=== PATIENT | female | born 1995 | race American Indian/Alaskan Native ===

== ENCOUNTER 2017-10-05 18:12 | Inpatient (IN) | payer MEDICAID ==
[2017-10-05] MEDS ORDERED: BRETHINE IVP PRN (20:59)
[2017-10-05] MEDS ORDERED: STADOL IV PRN (20:59)
[2017-10-05] MEDS ORDERED: ePHEDrine SULFATE IV PRN (20:59)
[2017-10-05] MEDS ORDERED: XYLOCAINE 2% INFILTRATI ONE (20:59)
[2017-10-05] MEDS ORDERED: NARCAN 0.4 MG/1 ML IV PRN (20:59)
[2017-10-05] MEDS ORDERED: SUBLIMAZE IV PRN (20:59)
[2017-10-05] MEDS ORDERED: MINERAL OIL PO PRN (20:59)
[2017-10-05] MEDS ORDERED: ZOFRAN IV PRN (20:59)
[2017-10-05] MEDS ORDERED: BRETHINE SUB-Q PRN (20:59)
[2017-10-05] MEDS ORDERED: PITOCin/NS 30 UNIT/500ML 30 UNITS/500 ML BAG IV SCH (21:00)
[2017-10-05] MEDS ORDERED: PITOCin/NS 20 UNIT/1000ML DRIP 20 UNITS/1,000 ML BAG IV SCH (21:00)
[2017-10-05] MEDS ORDERED: POLYCILLIN/NS 2 GM/100 ML 2 GM/100 ML BAG IV ONE (22:00)
[2017-10-05] MEDS: LACTATED RINGERS 1,000 ML IV SCH (22:30)
[2017-10-05 22:55] LABS: Hematocrit 35.8 % (30.3-42.9); Hemoglobin 12.2 gm/dl (10.1-14.3); Mean Corpuscular HGB Conc 34 % (30-34); Mean Corpuscular Hemoglobin 34 pg (28-32); Mean Corpuscular Volume 100 fl (79-97); Platelet Count 176 K/mm3 (140-440); Red Blood Count 3.59 M/mm3 (3.65-5.03); Red Cell Distribution Width 12.8 % (13.2-15.2); White Blood Count 8.9 K/mm3 (4.5-11.0)
[2017-10-06] MEDS: POLYCILLIN/NS 1 GM/50 ML 1 GM/50 ML BAG IV SCH ×2 (03:10→06:41)
[2017-10-06] MEDS: LACTATED RINGERS 1,000 ML IV SCH ×4 (03:14→13:17)
--- NOTE | 2017-10-06 07:55 | History and Physical Report ---
History of Present Illness Date of examination: 10/06/17 Date of admission: 10/05/17 18:12 History of present illness: 22 yo second trimester ultrasound EDC 09/30/17 @ 40.6 presented to office yesterday for postdates testing. Reactive NST with late decel noted with one contraction. Sent from office for delivery. Low dose Pitocin during the night.. Patient was late entry into care at 21 weeks gestation. Limited anatomical survey with normal anatomy f/u. Anemia with iron QD. She is GBS negative. Past History Past Medical History: no pertinent history Past Surgical History: no surgical history Family/Genetic History: none Social history: no significant social history - Obstetrical History Expected Date of Delivery: 09/30/17 Actual Gestation: 40 Week(s) 6 Day(s) : 1 Medications and Allergies Allergies Allergy/AdvReac Type Severity Reaction Status Date / Time No Known Allergies Allergy Unverified 10/05/17 20:27 Home Medications Medication Instructions Recorded Confirmed Last Taken Type Ferrous Sulfate [Iron] 325 mg PO BID 10/05/17 10/05/17 3 Weeks Ago History ~09/14/17 Vit-Fe Fumar-FA [ 1 tab PO QDAY 10/05/17 10/05/17 10/04/17 History Vitamin] Active Meds: Active Medications Butorphanol Tartrate (Stadol) 2 mg IV Q2H PRN PRN Reason: Pain , Severe (7-10) Ephedrine Sulfate (Ephedrine Sulfate) 10 mg IV Q2M PRN PRN Reason: Hypotension Fentanyl (Sublimaze) 100 mcg IV Q2H PRN PRN Reason: Labor Pain Ampicillin Sodium (Polycillin/Ns 1 Gm/50 Ml) 1 gm in 50 mls @ 100 mls/hr IV Q4H JOHN PRN Reason: Protocol Last Admin: 10/06/17 06:41 Dose: 100 mls/hr Lactated Ringer's (Lactated Ringers) 1,000 mls @ 125 mls/hr IV DIRECT JOHN Last Admin: 10/06/17 03:14 Dose: 125 mls/hr Oxytocin/Sodium Chloride (Pitocin/Ns 20 Unit/1000ml Drip) 20 units in 1,000 mls @ 125 mls/hr IV DIRECT JOHN Oxytocin/Sodium Chloride (Pitocin/Ns 30 Unit/500ml) 30 units in 500 mls @ 1 mls /hr IV TITR JOHN PRN Reason: Protocol Last Titration: 10/06/17 02:05 Dose: 4 mls/hr, 4 mls/hr Mineral Oil (Mineral Oil) 30 ml PO QHS PRN PRN Reason: Constipation Naloxone HCl (Narcan 0.4 Mg/1 Ml) 0.1 mg IV Q2MIN PRN PRN Reason: Res Rate </= 8 or 02 SAT < 92% Ondansetron HCl (Zofran) 4 mg IV Q8H PRN PRN Reason: Nausea And Vomiting Terbutaline Sulfate (Brethine) 0.25 mg SUB-Q ONCE PRN PRN Reason: Hyperstimulation/Hypertonicity Terbutaline Sulfate (Brethine) 0.25 mg IVP ONCE PRN PRN Reason: Hyperstimulation/Hypertonicity Review of Systems All systems: negative - Vital Signs Vital signs: Vital Signs Pulse BP Pulse Ox 98 H 109/68 99 10/05/17 18:43 10/05/17 18:43 10/05/17 18:43 Temp Pulse Resp BP Pulse Ox 97.1 F L 63 18 127/76 100 10/06/17 03:12 10/06/17 07:50 10/06/17 03:12 10/06/17 07:27 10/06/17 07:50 - Physical Exam Breasts: Positive: deferred Abdomen: Positive: normal appearance - Obstetrical FHR: category 1 Uterine Contraction Monitor Mode: External Results Result Diagrams: 10/05/17 22:30 Abnormal lab results 10/05/17 Range/Units 22:30 RBC 3.59 L (3.65-5.03) M/mm3 MCV 100 H (79-97) fl MCH 34 H (28-32) pg RDW 12.8 L (13.2-15.2) % All other labs normal. Assessment and Plan A: IUP at 40.6 weeks gestation Induction of labor
[2017-10-06] MEDS ORDERED: fentaNYL-BUPIV 2 MCG/ML-0.125% 200 MCG/100 ML BAG EPIDURAL ONE (12:27)
--- NOTE | 2017-10-06 13:00 | Anesthesia Consultation ---
Anesthesia Consult and Med Hx Date of service: 10/06/17 - Airway Anesthetic Teeth Evaluation: Good ROM Head & Neck: Adequate Mental/Hyoid Distance: Adequate Mallampati Class: Class II Intubation Access Assessment: Probably Good - Pre-Operative Health Status ASA Pre-Surgery Classification: ASA2 Proposed Anesthetic Plan: Epidural, Spinal - Pulmonary Hx Asthma: No COPD: No Hx Pneumonia: No - Cardiovascular System Hx Hypertension: No - Central Nervous System Hx Seizures: No Hx Psychiatric Problems: No - Endocrine Hx Renal Disease: No Hx End Stage Renal Disease: No Hx Hypothyroidism: No Hx Hyperthyroidism: No - Hematic Hx Anemia: Yes (iron tabs bid) Hx Sickle Cell Disease: No - Other Systems Hx Alcohol Use: No
[2017-10-06] MEDS ORDERED: NARCAN 2 MG/2 ML IV PRN (13:01)
[2017-10-06] MEDS ORDERED: ePHEDrine SULFATE IV PRN (13:01)
[2017-10-06] MEDS ORDERED: fentaNYL-BUPIV 2 MCG/ML-0.125% 200 MCG/100 ML BAG EPIDURAL SCH (14:00)
[2017-10-06] MEDS ORDERED: BICITRA ONE (19:02)
[2017-10-06] MEDS ORDERED: REGLAN IV ONE (19:07)
[2017-10-06] MEDS ORDERED: BICITRA PO SCH (19:07)
[2017-10-06] MEDS ORDERED: PEPCID IV SCH (19:07)
--- NOTE | 2017-10-06 19:07 | Event Note ---
Date: 10/06/17 Patient undergoing induction. Intrapartum course complicated intermittent late decels and occasional variable decels. Patient has progressed to 5cm. Patient counseled for a primary delivery
--- NOTE | 2017-10-06 19:09 | Procedure Note ---
OB Delivery Note - Delivery Date of Delivery: 10/06/17 Surgeon: LILY DOHERTY Estimated blood loss: other (600ml) - Section Preop diagnosis: nonreassuring FHR tracing Postop diagnosis: same section procedure: section, primary low transverse Disposition: PACU Complications: none - A at 1 minute: 8 at 5 minutes: 9 Infant Gender: Male (weight 7lbs 3oz)
[2017-10-06] MEDS ORDERED: NARCAN 0.4 MG/1 ML IV PRN (19:10)
[2017-10-06] MEDS ORDERED: TUCKS PAD TP PRN (19:10)
[2017-10-06] MEDS ORDERED: MYLICON PO PRN (19:10)
[2017-10-06] MEDS ORDERED: LANSINOH TP PRN (19:10)
[2017-10-06] MEDS ORDERED: TYLENOL PO PRN (19:10)
[2017-10-06] MEDS ORDERED: MILK OF MAGNESIA PO PRN (19:10)
[2017-10-06] MEDS ORDERED: ANCEF/STERILE WATER 2 GM/20 ML 2 GM/20 ML SYRINGE IV ONE (19:14)
[2017-10-06] MEDS ORDERED: ANCEF/STERILE WATER 2 GM/20 ML IV ONE (19:25)
[2017-10-06] MEDS ORDERED: WATER FOR IRRIG STERILE IR ONE (19:30)
[2017-10-06] MEDS ORDERED: NACL 0.9% IR ONE (19:30)
[2017-10-06] MEDS ORDERED: XYLOCAINE MPF 2% ONE ×3 (19:38)
[2017-10-06] MEDS ORDERED: ZOFRAN ONE (19:38)
[2017-10-06] MEDS ORDERED: MORPHINE ONE (19:52)
[2017-10-06] MEDS ORDERED: LACTATED RINGERS 1,000 ML IV SCH (20:00)
[2017-10-06] MEDS ORDERED: PITOCin/NS 20 UNIT/1000ML DRIP 20 UNITS/1,000 ML BAG IV SCH ×2 (20:00)
[2017-10-06] MEDS ORDERED: SODIUM CHLORIDE FLUSH SYRINGE 10 ML IV SCH (20:00)
[2017-10-06] MEDS ORDERED: ANCEF/STERILE WATER 2 GM/20 ML 2 GM/20 ML SYRINGE IV NR (20:00)
--- NOTE | 2017-10-06 20:16 | Operative Report ---
Operative Report Operative Report: Date of surgery: 10/06/2017 Preoperative diagnosis: at 41+0 weeks; nonreassuring heart rate tracing Postoperative diagnosis: Same as above Procedure: Primary low transverse delivery Surgeon: Alicia Payne M.D. Anesthesia: Regional Estimated blood loss: 600ml IV fluids: 1300 mL Urine Output: 150 mL Findings: Liveborn male with Apgars of 8 and 9 weight 7 lbs. 3 oz. Indications: 2-year-old at 41+0 weeks who was admitted for induction of labor. Her intrapartum course was complicated by intermittent late decelerations. The patient progressed to 5 cm during her labor. Procedure: The patient was taken to the operating room and given regional anesthesia without complication. She was prepped and draped in a normal sterile fashion. A Pfannenstiel skin incision was made down to layer the fascia which was nicked in the midline extended laterally with the Bovie cautery. The superior aspect of the rectus fascia was grasped with Pedro clamps x2 and the rectus muscles off sharply. This was done in inferior fashion as well. The rectus muscle midline and peritoneum entered bluntly. An Rashaun retractor was then inserted. A bladder blade was placed. The vesicouterine peritoneum was then entered sharply with Metzenbaum scissors. A bladder flap was created digitally. A low transverse uterine incision was then made and extended digitally. There was clear fluid upon entry into the uterine cavity. The head was delivered through the incision with fundal pressure in OP position. A loose nuchal cord was manually reduced 1. Shoulders delivered easily. The cord was clamped and cut x2 and was passed off to pediatrics. The placenta was then manually extracted. The uterus was then exteriorized and cleared of clots and debris. The uterine incision was then closed in a running locked fashion with 0 Vicryl additional imbricating stitch was applied for 2 layer closure. The serosa was then reapproximated with 3-0 Vicryl. The posterior cul-de-sac was then copiously irrigated. The uterus was replaced back into the abdomen and pelvis were the gutters were then irrigated. The Rashaun retractor was then removed. The peritoneum was then reapproximated with 3-0 Vicryl incorporating the rectus muscle. The fascia was then closed with 0 Vicryl in a running fashion. The skin was then reapproximated with 3-0 Monocryl on a Demetri needle subcuticular fashion. Steri-Strips to place across the incision and a Crede procedures performed at the end of the surgery. A pressure dressing was applied to the incision. The surgery productive of a liveborn male with Apgars of 8 and 9 weight 7 lbs. 3 oz. The patient was taken to the recovery room in stable condition. All sponge laps and needle counts correct x2.
[2017-10-06] MEDS ORDERED: ZOFRAN IV PRN (20:38)
[2017-10-06] MEDS ORDERED: MORPHINE IV PRN (20:38)
--- NOTE | 2017-10-06 20:38 | Anesthesia Day of Surgery ---
Anesthesia Day of Surgery - Day of Surgery Patient Examined: Yes Patient H&P Reviewed: Yes Patient is NPO: No (fsp)
[2017-10-06] MEDS: TORADOL IV PRN (21:03)
[2017-10-07] MEDS ORDERED: D5LR 1,000 ML IV SCH (05:00)
[2017-10-07] MEDS ORDERED: BOOSTRIX IM ONE (05:00)
[2017-10-07] MEDS: TORADOL IV PRN (05:15)
[2017-10-07 06:37] LABS: Hematocrit 31.8 % (30.3-42.9); Hemoglobin 10.7 gm/dl (10.1-14.3)
--- NOTE | 2017-10-07 06:59 | Progress Note ---
Assessment and Plan O: VSS AF PP H/H: 10.7/31.8 A: Stable POD #1 Anemia P: Iron Routine PP orders Subjective - Subjective Date of service: 10/07/17 Interval history: 22 yo second trimester ultrasound EDC 09/30/17 @ 40.6 presented to office yesterday for postdates testing. Reactive NST with late decel noted with one contraction. Sent from office for delivery. Low dose Pitocin during the night.. Patient was late entry into care at 21 weeks gestation. Limited anatomical survey with normal anatomy f/u. Anemia with iron QD. She is GBS negative. Patient reports: appetite normal (Tolerating CL diet w/o N/V), pain well controlled, flatus, no voiding normally ([place]ley present and patent), no ambulating normally : doing well Objective - Vital Signs Latest vital signs: Vital Signs Temp Pulse Resp BP BP Pulse Ox 10/07/17 00:40 98.5 F 67 18 120/80 10/06/17 22:00 98.8 F 66 18 128/80 10/06/17 19:18 79 99 10/06/17 19:13 88 99 10/06/17 19:08 65 100 10/06/17 19:03 66 100 10/06/17 18:58 77 100 10/06/17 18:56 79 106/55 10/06/17 18:53 89 100 10/06/17 18:48 79 99 10/06/17 18:43 70 100 10/06/17 18:38 69 100 10/06/17 18:35 98.2 F 18 10/06/17 18:33 65 99 10/06/17 18:28 75 100 10/06/17 18:24 68 99/57 10/06/17 18:23 65 100 10/06/17 18:18 66 100 10/06/17 18:13 65 100 10/06/17 18:08 65 100 10/06/17 18:03 76 100 10/06/17 17:58 77 100 10/06/17 17:54 60 92/52 10/06/17 17:53 63 99 10/06/17 17:48 58 L 100 10/06/17 17:43 75 99 10/06/17 17:38 62 99 10/06/17 17:33 71 100 12/14/17 17:28 72 91 12/14/17 17:26 85 91 12/14/17 17:24 83 110/65 12/14/17 17:23 76 99 12/14/17 17:18 72 100 12/14/17 17:13 86 100 12/14/17 17:08 73 100 12/14/17 17:03 76 100 12/14/17 16:58 70 100 12/14/17 16:54 67 112/67 12/14/17 16:53 65 100 12/14/17 16:48 69 99 12/14/17 16:43 68 98 12/14/17 16:38 86 100 12/14/17 16:33 69 99 12/14/17 16:28 63 99 12/14/17 16:24 59 L 98/55 12/14/17 16:23 65 98 12/14/17 16:03 63 99 12/14/17 15:58 68 99 12/14/17 15:54 61 95/50 12/14/17 15:53 67 99 12/14/17 15:48 67 98 12/14/17 15:43 61 99 12/14/17 15:38 62 98 12/14/17 15:33 66 99 12/14/17 15:28 63 99 12/14/17 15:25 63 95/59 12/14/17 15:23 60 98 12/14/17 15:18 69 100 12/14/17 15:13 67 100 12/14/17 15:08 66 100 12/14/17 15:03 68 98 12/14/17 14:58 55 L 99 12/14/17 14:54 64 113/73 12/14/17 14:53 66 99 12/14/17 14:48 62 98 12/14/17 14:43 60 98 12/14/17 14:38 59 L 99 12/14/17 14:33 65 98 12/14/17 14:28 68 98 12/14/17 14:25 62 98/56 12/14/17 14:23 62 97 12/14/17 14:20 97.6 F 12/14/17 14:18 76 97 12/14/17 14:13 62 99 12/14/17 14:08 70 98 12/14/17 14:03 67 99 12/14/17 13:58 66 99 12/14/17 13:56 70 91 14/17 13:53 70 100 14/17 13:51 59 L 110/64 14/17 13:48 64 99 14/17 13:47 67 107/66 14/17 13:43 66 100 14/17 13:42 67 126/74 14/17 13:38 63 100 14/17 13:36 64 97/66 14/17 13:33 63 100 14/17 13:31 75 110/76 14/17 13:28 74 100 14/17 13:26 60 105/66 14/17 13:23 65 100 1417 13:21 61 104/66 14/17 13:18 62 100 1417 13:17 68 114/73 10/06/17 13:13 58 L 100 10/06/17 13:12 59 L 109/67 10/06/17 13:08 67 100 10/06/17 13:06 59 L 111/70 17 13:03 70 100 10/06/17 13:01 52 L 109/70 10/06/17 12:59 53 L 109/69 10/06/17 12:58 71 L 10/06/17 12:57 61 91 10/06/17 12:53 60 99 10/06/17 12:51 64 115/59 17 12:48 55 L 100 10/06/17 12:43 67 100 10/06/17 12:38 48 L 100 10/06/17 12:36 18 106/58 17 12:34 65 75 L 10/06/17 12:33 65 106/58 100 17 12:30 77 105/61 10/06/17 12:28 59 L 100 17 12:26 64 106/64 17 12:23 65 100 17 12:18 62 98 10/06/17 12:13 94 H 98 10/06/17 12:08 58 L 97 10/06/17 12:03 74 97 14/17 11:58 73 98 14/17 11:57 66 117/72 14/17 11:53 67 96 12/14/17 11:48 63 96 12/14/17 11:43 57 L 97 /14/17 11:38 65 100 12/14/17 11:33 65 99 12/14/17 11:28 63 98 12/14/17 11:27 66 120/79 12/14/17 11:23 64 98 12/14/17 11:18 61 99 12/14/17 11:13 61 98 12/14/17 11:08 67 100 /14/17 10:57 84 96/56 98 12/14/17 10:52 74 97 12/14/17 10:47 75 98 /14/17 10:42 64 98 /14/17 10:37 72 98 /14/17 10:32 67 97 /14/17 10:27 79 98/57 96 /14/17 10:22 58 L 98 14/17 10:17 76 96 14/17 10:12 69 97 /14/17 10:07 60 97 14/17 10:03 96.6 F L 14/17 10:02 70 97 /14/17 09:57 63 97 /14/17 09:56 72 110/61 12/14/17 09:52 60 97 /14/17 09:47 70 97 /14/17 09:42 66 98 /14/17 09:37 66 98 14/17 09:32 61 99 14/17 09:30 53 L 94/54 14/17 09:27 81 18 100 14/17 09:19 58 L 99 14/17 09:14 75 98 12/14/17 09:09 74 100 /14/17 09:04 66 99 12/14/17 08:59 71 98 12/14/17 08:56 64 122/78 12/14/17 08:54 64 98 12/14/17 08:49 64 98 12/14/17 08:44 63 98 12/14/17 08:39 72 99 /14/17 08:34 64 100 12/14/17 08:25 61 98 12/14/17 08:20 69 98 12/14/17 08:15 76 99 14/17 08:10 83 97 12/14/17 08:05 71 98 10/06/17 08:00 66 98 10/06/17 07:55 65 99 10/06/17 07:50 63 100 10/06/17 07:49 97.2 F L 62 20 127/76 100 10/06/17 07:45 64 100 10/06/17 07:40 71 99 10/06/17 07:34 65 99 10/06/17 07:29 73 99 10/06/17 07:27 68 127/76 10/06/17 07:24 71 100 10/06/17 07:19 66 98 10/06/17 07:14 74 98 10/06/17 07:09 69 99 10/06/17 07:04 66 99 10/06/17 06:59 71 100 Intake and Output 10/06/17 10/06/17 10/07/17 14:59 22:59 06:59 Intake Total 0137.292 9230.667 240 Output Total 700 1450 700 Balance 660.317 -66.333 -460 Intake: IV 2138.361 0090.667 Lactated Ringers 1,000 ml 1256.250 @ 125 mls/hr IV DIRECT JOHN Rx#:[id number] PITOCin/NS 30 UNIT/500ML 104.067 83.667 30 units In 500 ml @ 1 mls/hr IV TITR JOHN Rx#: [id number] Intake, Free Water 240 Output: Urine 700 1450 700 Indwelling 200 400 Indwelling Catheter 900 700 Void 500 Other: Total, Output Amount 200 900 700 # Voids Void 1 - Exam Breasts: Present: deferred Lungs: Present: Normal air movement Abdomen: Present: normal appearance, soft, distention (mild), normal bowel sounds Vulva: both: normal Uterus: Present: normal, firm, tenderness, fundal height below umbilicus (1 below U, ML). Absent: bogginess Extremities: Present: normal Incision: Present: normal, dry, dressed
[2017-10-07] MEDS: PERCOCET 5/325 PO PRN ×3 (12:18→22:21)
[2017-10-07] MEDS: MOTRIN PO PRN (20:39)
[2017-10-07] MEDS: FEOSOL PO SCH (22:21)
[2017-10-08] MEDS: PERCOCET 5/325 PO PRN ×4 (05:22→22:12)
[2017-10-08] MEDS: MOTRIN PO PRN ×2 (08:55→21:40)
[2017-10-08] MEDS: FEOSOL PO SCH ×2 (10:24→21:40)
--- NOTE | 2017-10-08 14:51 | Progress Note ---
Assessment and Plan O: VSS AF A: Stable POD #2 P: Routine orders Plan discharge tomorrow Subjective - Subjective Date of service: 10/08/17 Interval history: 22 yo second trimester ultrasound EDC 09/30/17 @ 40.6 presented to office yesterday for postdates testing. Reactive NST with late decel noted with one contraction. Sent from office for delivery. Low dose Pitocin during the night.. Patient was late entry into care at 21 weeks gestation. Limited anatomical survey with normal anatomy f/u. Anemia with iron QD. She is GBS negative. Patient reports: appetite normal, voiding normally, pain well controlled, flatus (minimal), ambulating normally [place]: doing well Objective - Vital Signs Latest vital signs: Vital Signs Temp Pulse Resp BP BP Pulse Ox 10/08/17 10:23 20 10/08/17 08:33 98.2 F 76 18 119/78 10/08/17 02:44 97.9 F 71 20 107/70 97 10/07/17 17:13 98.2 F 75 20 117/74 99 Intake and Output 10/07/17 10/08/17 10/08/17 22:59 06:59 14:59 Intake Total 550 360 120 Balance 550 360 120 Intake: Oral 550 120 Intake, Free Water 360 Other: Total, Intake Amount 550 120 # Voids Void 3 1 - Exam Breasts: Present: deferred Lungs: Present: Normal air movement Abdomen: Present: normal appearance, soft, distention (mild), normal bowel sounds Vulva: both: normal Uterus: Present: normal, firm, fundal height below umbilicus. Absent: bogginess , tenderness Extremities: Present: normal Incision: Present: normal, dry, intact
--- NOTE | 2017-10-08 14:55 | Discharge Summary ---
Providers - Providers Date of Admission: 10/05/17 18:12 Date of discharge: 10/09/17 Attending physician: AMANDA SANCHEZ Primary care physician: AMANDA SANCHEZ Hospitalization Reason for admission: induction of labor (failed postdates induction), IUP at term Delivery: Procedure: primary low transverse Episiotomy: none Laceration: none Incision: normal, dry, intact complications: none Discharge diagnosis: IUP at term delivered baby: male Condition at discharge: Good Disposition: DC-01 TO HOME OR SELFCARE Plan - Discharge Medications Prescriptions: Ibuprofen [Motrin 800 MG tab] 800 mg PO Q6H PRN #30 tablet PRN Reason: Pain, Mild (1-3) oxyCODONE /ACETAMINOPHEN [Percocet 5/325 mg] 2 tab PO Q4H PRN #30 tablet PRN Reason: Pain, Moderate (4-6) - Provider Discharge Summary Activity: routine, no sex for 6 weeks, no heavy lifting 4 weeks, no strenuous exercise Instructions: routine Additional instructions: [] Smoking cessation referral if applicable(refer to patient education folder for contact #) [] Refer to [facility] Booklet Call your doctor immediately for: * Fever > 100.5 * Heavy vaginal bleeding ( >1 pad per hour) * Severe persistent headache * Shortness of breath * Reddened, hot, painful area to leg or breast * Drainage or odor from incision. * Keep incision clean and dry at all times and follow doctor's instructions regarding bathing/showering - Follow up plan Follow up: AMANDA SANCHEZ MD [Primary Care Provider] - 14 Days MICHAELA YOUNG CNM [Advanced Practice Nurse] - 14 Days (RTO 2 weeks incision check and schedule infant circumcision at same visit)
[2017-10-09] MEDS: PERCOCET 5/325 PO PRN (05:32)
[2017-10-09] MEDS: MOTRIN PO PRN (05:33)
[2017-10-09 09:45] VITALS: BP 115/74
[2017-10-09] MEDS ORDERED: Fluarix Quad 2017-2018(36 MOS+ IM ONE (12:00)
== END 2017-10-09 14:10 | disposition home or self-care (01) | DRG 766 ==
LOC: LD 18:12 → APU 10-06 19:06 → OB 10-06 21:45
PROVIDERS: ADMIT Obstetrics & Gynecology; ATTEND Obstetrics & Gynecology
PROC: 10D00Z1 Extraction of Products of Conception, Low, Open Approach (ICD-10-PCS; principal; 2017-10-06)
PROC: 3E0234Z Introduction of Serum, Toxoid and Vaccine into Muscle, Percutaneous Approach (ICD-10-PCS; 2017-10-09)
DX: O69.81X0 Labor and delivery complicated by cord around neck, without compression, not applicable or unspecified (principal); O76 Abnormality in fetal heart rate and rhythm complicating labor and delivery; O99.02 Anemia complicating childbirth; D64.9 Anemia, unspecified; Z37.0 Single live birth; Z3A.40 40 weeks gestation of pregnancy; Z79.899 Other long term (current) drug therapy; Z23 Encounter for immunization
CPT/HCPCS: 36415; 85014; 85018; 85027; 86592; 86850; 86900; 86901; 90471; 90686; 90715; G0008; J0290; J0595; J0690; J1885; J2270; J2405; J2590; J2765; J3010; J7120; J7121